=== PATIENT | male | born 1980 | race Caucasian/White ===

== ENCOUNTER 2022-05-24 09:36 | Emergency (ER) | payer BC, OTHER ==
[2022-05-24] MEDS ORDERED: Iopamidol 370 76% 200 ML VIAL ONE (09:54)
[2022-05-24] MEDS ORDERED: Sodium Chloride 0.9% 100 ML BAG ONE (09:54)
[2022-05-24] MEDS ORDERED: Meclizine HCl 25 MG TAB ONE (10:16)
[2022-05-24] MEDS ORDERED: Sodium Chloride 0.9% 1,000 ML ONE (10:16)
[2022-05-24 10:45] LABS: #Basophils 0.1 thou/uL (0.0-0.2); #Eosinphils 0.3 thou/uL (0.0-0.7); #Lymphocytes 2.3 thou/uL (1.20-3.40); #Monocytes 0.4 thou/uL (0.11-0.59); #Neutrophils 5.3 thou/uL (1.40-6.50); %Basophils 1.4 % (0.0-1.0); %Eosinophils 3.3 % (0.0-10.0); %Lymphocytes 26.9 % (21.0-51.0); %Monocytes 5.2 % (0.0-10.0); %Neutrophils 63.2 % (42.0-75.0); Hemoglobin 14.8 g/dL (14.0-18.0); Mean Corpuscular HGB CONC 33.6 g/dL (32.0-36.0); Mean Corpuscular Hemoglobin 32.6 pg (27.0-31.0); Mean Corpuscular Volume 97.1 fl (78.0-98.0); Mean Platelet Volume 10.9 fL (7.4-10.4); Platelet Count 291 10x3/uL (130-400); RBC Distribution Width 11.2 % (11.5-14.5); Red Blood Cell (RBC) Count 4.53 mill/uL (4.70-6.10); White Blood Cell (WBC) Count 8.4 10x3/uL (4.8-10.8)
[2022-05-24 10:59] LABS: ALT (SGPT) 35 U/L (8-55); AST (SGOT) 35 U/L (5-34); Albumin 4.6 g/dL (3.5-5.0); Alkaline Phosphatase 72 U/L (40-110); Anion Gap 13 mmol/L (10-20); BUN (Urea Nitrogen) 13 mg/dL (8.9-20.6); Bilirubin, Total 0.8 mg/dL (0.2-1.2); Calc. Creatinine Clearance 0 mL/min (70-130); Calcium 9.4 mg/dL (7.8-10.44); Carbon Dioxide 24 mmol/L (22-29); Chloride 105 mmol/L (98-107); Estimated GFR 110; Globulin 2.9 g/dL (2.4-3.5); Glucose 96 mg/dL (70-105); Potassium 3.8 mmol/L (3.5-5.1); Protein, Total 7.5 g/dL (6.0-8.3); Sodium 138 mmol/L (136-145)
[2022-05-24] MEDS ORDERED: Diazepam 5 MG TAB ONE (11:07)
== END 2022-05-24 14:36 | disposition home or self-care (01) ==
LOC: MADERS 09:36
DX: R42 Dizziness and giddiness (principal); I10 Essential (primary) hypertension; F17.210 Nicotine dependence, cigarettes, uncomplicated
CPT/HCPCS: 36416; 70450; 70496; 70498; 80053; 83735; 84484; 85025; 93005; 94760; 96360; J7050